=== PATIENT | female | born 1950 | race Caucasian/White ===

== ENCOUNTER 2017-12-02 12:06 | Outpatient (CLI) | payer MEDICARE, OTHER ==
[2017-12-02 13:41] LABS: Anion Gap 14 mmol/L (10-20); BUN (Urea Nitrogen) 20 mg/dL (9.8-20.1); Calc. Creatinine Clearance 0 mL/min (70-130); Calcium 9.5 mg/dL (7.8-10.44); Carbon Dioxide 31 mmol/L (23-31); Chloride 98 mmol/L (98-107); Estimated GFR-MDRD 57; Glucose 157 mg/dL (80-115); Potassium 4.7 mmol/L (3.5-5.1); Sodium 138 mmol/L (136-145)
== END 2017-12-02 12:07 | disposition home or self-care (01) ==
LOC: LABBT 12:06
PROVIDERS: ATTEND Orthopaedic Surgery
DX: M18.9 Osteoarthritis of first carpometacarpal joint, unspecified (principal); E11.9 Type 2 diabetes mellitus without complications; I10 Essential (primary) hypertension; E55.9 Vitamin D deficiency, unspecified; E78.5 Hyperlipidemia, unspecified
CPT/HCPCS: 36415; 80048; 80061; 82306; 83036; 84443; 85025; 93005; 93010

== ENCOUNTER 2017-12-06 13:13 | Observation (INO) | payer MEDICARE, MEDICAID ==
[2017-12-06] MEDS ORDERED: Ondansetron HCl/PF 4 MG/2 ML Vial ONE ×2 (14:50→15:43)
[2017-12-06] MEDS ORDERED: Bupivacaine HCl 0.5%/Epinephrine 1:200,000/PF 30 ml Vial ONE (14:51)
[2017-12-06] MEDS ORDERED: Lidocaine 1% (PF) 30 ML VIAL ONE (14:51)
[2017-12-06] MEDS ORDERED: Ketorolac Tromethamine 30 MG/ML VIAL ONE (15:43)
[2017-12-06] MEDS ORDERED: Succinylcholine Chloride 20 MG/ML 10 ml SYRINGE FS ONE (15:43)
[2017-12-06] MEDS ORDERED: Dexamethasone 20 MG/5 ML VIAL ONE (15:43)
[2017-12-06] MEDS ORDERED: Labetalol 100 MG/20 ML MDV ONE (15:43)
[2017-12-06] MEDS ORDERED: Propofol 200 MG/20 ML VIAL ONE (15:43)
[2017-12-06] MEDS ORDERED: Lidocaine 1% PF 5 ML VIAL ONE (15:43)
[2017-12-06] MEDS ORDERED: CEFAZOLIN/Water 2 GM/20 ML SYRINGE ONE (17:37)
[2017-12-06] MEDS ORDERED: Albuterol Sulfate HFA (OR ONLY) ONE (17:39)
[2017-12-06] MEDS ORDERED: Fentanyl 100 MCG/2 ML VIAL ONE ×5 (17:40→20:27)
[2017-12-06] MEDS ORDERED: methylPREDNISolone Acetate 40 mg/ml Vial ONE (17:49)
[2017-12-06] MEDS ORDERED: Ondansetron HCl/PF 4 MG/2 ML Vial SLOW IVP PRN (20:56)
[2017-12-06] MEDS ORDERED: traMADol HCl 50 MG TAB PO PRN (20:57)
[2017-12-06] MEDS ORDERED: HYDROcodone/Acetaminophen 10/325 mg Tablet PO PRN ×2 (20:57)
[2017-12-06] MEDS ORDERED: Sodium Chloride 0.9% 1,000 ML IV SCH (21:00)
[2017-12-06] MEDS ORDERED: Ondansetron HCl/PF 4 MG/2 ML Vial IVP PRN (21:01)
[2017-12-06] MEDS ORDERED: Promethazine HCl 25 MG/ML VIAL IM/IV PRN (21:01)
[2017-12-06] MEDS ORDERED: Non-Formulary Medication 1 EACH PO PRN (21:01)
[2017-12-06] MEDS ORDERED: PROVENTIL INHALER 6.7 G (200 INHALATIONS) INH PRN (21:03)
[2017-12-06] MEDS ORDERED: Fluticasone Propionate Nasal Spray 16 gm Bottle NASAL PRN (21:08)
[2017-12-06] MEDS ORDERED: Ondansetron ODT 4 MG TAB PO PRN (21:13)
[2017-12-06] MEDS ORDERED: tiZANidine HCl 4 MG TAB PO PRN (21:15)
[2017-12-06] MEDS ORDERED: Amitriptyline HCl 25 MG TAB PO SCH (21:30)
[2017-12-06] MEDS ORDERED: Diazepam 5 MG TAB PO SCH (21:30)
[2017-12-06] MEDS ORDERED: Pravastatin Sodium 20 MG TAB PO SCH (21:30)
[2017-12-06] MEDS ORDERED: Gabapentin 300 MG CAP PO SCH (21:30)
[2017-12-06 22:57] VITALS: BMI 39.9
[2017-12-06] MEDS: Ipratropium Bromide 2.5 ml Neb NEB SCH (23:57)
--- NOTE | 2017-12-07 01:43 | OP ---
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 PROCEDURES: 1. Injection of the right shoulder joint. 2. Arthroplasty of the left thumb CMC joint. SURGEON: Nicanor Partida M.D. SURGEON IN DETAIL: The patient was brought to the operating room and after administration of general anesthetic intubation, the patient's right shoulder was prepped sterilely and under sterile conditio ns, the glenohumeral joint was injected with 2 mL of Depo-Medrol and 2 mL of 0.5% Marcaine with epine phrine. The left upper extremity was then prepped and draped in the usual fashion and the tourniquet was infl ated. A bayonet shaped incision was made centered over the thumb CMC joint and the soft tissues were retrac ori out of the way, exposing the thumb CMC joint. The dorsal branch of the radial artery was identif ied and retracted out of harm's way. The interval between the extensor pollicis brevis and the abduc tor pollicis longus was developed sharply and the trapezium was identified and removed with an osteot ome and rongeur, piecemeal. All of the trapezium was taken out and the flexor carpi radialis was merrick ntified in the floor of the wound. A second incision was made in the mid volar forearm and the flexo r carpi radialis was identified and sectioned at its musculotendinous junction. The flexor carpi rad ialis was then pulled distally into the wound where the trapezium had been. A drill hole was then ma de from dorsal to volar using a 4.5-mm bur. A Hewson suture passer was then used to pull the flexor carpi radialis through the hole in the base of the metacarpal. The tendon was then anchored to the d orsum of the metacarpal through 2 drill holes in the dorsum of the metacarpal and sutured with 3-0 PD S. The tendon was then brought across the base of the first metacarpal and sutured in the floor of t he wound with 3-0 PDS thus suspending the metacarpal at the level of the base of the second metacarpa l. The remainder of the tendon was rolled into an anchovy sutured together and then secured in the f lila of the wound with 2 pursestring sutures. The capsule was then snugly closed over the joint with 3-0 Vicryl. The tourniquet was released. There was minimal bleeding and the skin was closed with n ylon after infiltrating with Marcaine. The forearm wound was also closed with nylon after infiltrate d with Marcaine. A well-padded dressing was applied with a plaster thumb spica splint and the patien t was taken recovery room in satisfactory condition. She was monitored. When she was awake and stable, she was discharged home. She was given prescripti on for pain medication, wound care instructions, followup appointment.
[2017-12-07] MEDS ORDERED: Mometasone/Formoterol 120 PUFF INHALER INH SCH (06:30)
[2017-12-07] MEDS: Ipratropium Bromide 2.5 ml Neb NEB SCH ×2 (07:16→12:09)
[2017-12-07] MEDS ORDERED: metFORMIN XR 500 MG TAB PO SCH (08:00)
[2017-12-07] MEDS ORDERED: Ferrous Sulfate 325 MG TAB PO SCH (08:00)
[2017-12-07] MEDS ORDERED: predniSONE 20 MG TAB PO SCH (08:00)
[2017-12-07] MEDS ORDERED: Potassium Chloride 8 MEQ TAB PO SCH (08:00)
[2017-12-07 08:40] VITALS: BP 127/67; TEMP 98.1
[2017-12-07] MEDS ORDERED: Valsartan 80 MG TAB PO SCH (09:00)
[2017-12-07] MEDS ORDERED: Allopurinol 100 MG TAB PO SCH (09:00)
[2017-12-07] MEDS ORDERED: Calcium Carbonate + Vit D 1 TAB PO SCH (09:00)
[2017-12-07] MEDS ORDERED: Magnesium Oxide 400 MG TAB PO SCH (09:00)
[2017-12-07] MEDS ORDERED: Furosemide 80 MG TAB PO SCH (09:00)
[2017-12-07] MEDS ORDERED: Vit A,C & E/Lutein/Minerals Tablet PO SCH (09:00)
[2017-12-07] MEDS ORDERED: Venlafaxine HCl XR 75 MG CAP PO SCH (09:00)
[2017-12-07] MEDS ORDERED: HYDROcodone/Acetaminophen 10/325 mg Tablet PO SCH (09:00)
--- NOTE | 2017-12-07 13:40 | PDOC.PN ---
- Subjective Encounter Start Date: 12/07/17 Encounter Start Time: 10:00 Subjective: no sob, is getting ready for discharge -: feels better - Objective MAR Reviewed: Yes Vital Signs & Weight: Vital Signs (12 hours) Temp Pulse Resp BP Pulse Ox 12/07/17 08:00 98.1 F 69 14 127/67 98 12/07/17 07:16 79 16 98 12/07/17 04:00 97.6 F 80 16 128/73 97 Weight Weight 239 lb 15.994 oz Additional Labs: Accuchecks 12/06/17 13:36 POC Glucose 178 H Phys Exam - Physical Examination HEENT: PERRLA, moist MMs Neck: no JVD, supple Respiratory: no wheezing, no rales Cardiovascular: RRR, no significant murmur Gastrointestinal: soft, non-tender, positive bowel sounds Musculoskeletal: no edema, pulses present Neurological: non-focal, moves all 4 limbs Psychiatric: A&O x 3 Dx/Plan (1) s/p arthroplasty of thumb Status: Acute Comment: s/p carpometacarpal joint arthroplasty for gouty arthritis (2) MANJEET (obstructive sleep apnea) Code(s): G47.33 - OBSTRUCTIVE SLEEP APNEA (ADULT) (PEDIATRIC) Status: Chronic (3) Asthma Code(s): J45.909 - UNSPECIFIED ASTHMA, UNCOMPLICATED Status: Chronic Qualifiers: Asthma severity: mild Asthma persistence: intermittent Asthma complication type: uncomplicated Qualified Code(s): J45.20 - Mild intermittent asthma, uncomplicated (4) Chronic pain syndrome Code(s): G89.4 - CHRONIC PAIN SYNDROME Status: Chronic (5) DM type 2 (diabetes mellitus, type 2) Status: Chronic Qualifiers: Diabetes mellitus complication status: with unspecified complications Diabetes mellitus usp insulin use: without usp use Qualified Code( s): E11.8 - Type 2 diabetes mellitus with unspecified complications (6) Depression Code(s): F32.9 - MAJOR DEPRESSIVE DISORDER, SINGLE EPISODE, UNSPECIFIED Status : Chronic Qualifiers: Depression Type: unspecified Qualified Code(s): F32.9 - Major depressive disorder, single episode, unspecified (7) Morbid obesity Code(s): E66.01 - MORBID (SEVERE) OBESITY DUE TO EXCESS CALORIES Status: Chronic - Plan hemostable -: to f/u with as adv, on -: to check fingerstick glucose daily and record for 10 days to f/u with pcp -: to continue allopurinol and current meds for htn, dm#2 * .
[2017-12-07] MEDS ORDERED: Diazepam 5 MG TAB PO SCH (21:00)
[2017-12-07] MEDS ORDERED: Amitriptyline HCl 25 MG TAB PO SCH (21:00)
[2017-12-07] MEDS ORDERED: Pravastatin Sodium 20 MG TAB PO SCH (21:00)
[2017-12-07] MEDS ORDERED: Gabapentin 300 MG CAP PO SCH (21:00)
[2017-12-07] MEDS ORDERED: Montelukast Sodium 10 mg Tablet PO SCH (21:00)
== END 2017-12-07 12:10 | disposition home or self-care (01) ==
LOC: SDC 13:13 → SURG B 20:37
PROVIDERS: ADMIT Orthopaedic Surgery; ATTEND Orthopaedic Surgery
PROC: 0RRT07Z Replacement of Left Carpometacarpal Joint with Autologous Tissue Substitute, Open Approach (ICD-10-PCS; principal; 2017-12-06)
PROC: 3E0U33Z Introduction of Anti-inflammatory into Joints, Percutaneous Approach (ICD-10-PCS; 2017-12-06)
DX: M18.12 Unilateral primary osteoarthritis of first carpometacarpal joint, left hand (principal); M19.011 Primary osteoarthritis, right shoulder; G47.33 Obstructive sleep apnea (adult) (pediatric); J45.909 Unspecified asthma, uncomplicated; G89.4 Chronic pain syndrome; E11.9 Type 2 diabetes mellitus without complications; F32.9 Major depressive disorder, single episode, unspecified; K58.9 Irritable bowel syndrome, unspecified; M19.90 Unspecified osteoarthritis, unspecified site; M10.9 Gout, unspecified; E66.01 Morbid (severe) obesity due to excess calories; F40.240 Claustrophobia; J42 Unspecified chronic bronchitis; Z68.41 Body mass index [BMI] 40.0-44.9, adult; Z79.84 Long term (current) use of oral hypoglycemic drugs; Z79.52 Long term (current) use of systemic steroids; Z79.899 Other long term (current) drug therapy; Z88.5 Allergy status to narcotic agent; Z91.048 Other nonmedicinal substance allergy status; Z99.89 Dependence on other enabling machines and devices; Z90.710 Acquired absence of both cervix and uterus; Z96.1 Presence of intraocular lens; Z98.41 Cataract extraction status, right eye; Z98.42 Cataract extraction status, left eye; Z96.653 Presence of artificial knee joint, bilateral; Z90.49 Acquired absence of other specified parts of digestive tract; Z98.84 Bariatric surgery status; Z98.890 Other specified postprocedural states; Z87.01 Personal history of pneumonia (recurrent)
CPT/HCPCS: 20610; 25447; 26483; 82962; 94640 ×3; 96374; G0378; 36416; J0670; J1030; J1100; J1885; J2001; J2405; J2704; J3010; J7506; J7644

== ENCOUNTER 2018-07-13 02:43 | Emergency (ER) | payer MEDICARE, MEDICAID ==
[2018-07-13] MEDS ORDERED: Lorazepam 2 MG/ML VIAL ONE (02:52)
[2018-07-13 03:21] LABS: #Basophils 0.1 thou/uL (0.0-0.2); #Lymphocytes 1.6 thou/uL (1.20-3.40); #Monocytes 0.4 thou/uL (0.11-0.59); #Neutrophils 3.5 thou/uL (1.40-6.50); %Basophils 0.9 % (0.0-1.0); %Eosinophils 0.7 % (0.0-10.0); %Lymphocytes 28.7 % (21.0-51.0); %Monocytes 7.9 % (0.0-10.0); %Neutrophils 61.8 % (42.0-75.0); Hemoglobin 14.3 g/dL (12.0-16.0); Mean Corpuscular HGB CONC 33.7 g/dL (32.0-36.0); Mean Corpuscular Hemoglobin 30.5 pg (27.0-31.0); Mean Corpuscular Volume 90.5 fL (78.0-98.0); Mean Platelet Volume 6.9 fL (7.4-10.4); Platelet Count 191 thou/uL (130-400); RBC Distribution Width 13.9 % (11.5-14.5); Red Blood Cell (RBC) Count 4.68 mill/uL (4.20-5.40); White Blood Cell (WBC) Count 5.6 thou/uL (4.8-10.8)
[2018-07-13 03:42] LABS: ALT (SGPT) 32 U/L (8-55); AST (SGOT) 36 U/L (5-34); Alkaline Phosphatase 79 U/L (40-150); Anion Gap 19 mmol/L (10-20); BUN (Urea Nitrogen) 18 mg/dL (9.8-20.1); Bilirubin, Total 0.5 mg/dL (0.2-1.2); CK (CPK) 74 U/L (29-168); Calc. Creatinine Clearance 0 mL/min (70-130); Carbon Dioxide 26 mmol/L (23-31); Chloride 99 mmol/L (98-107); Estimated GFR-MDRD 65; Globulin 3.4 g/dL (2.4-3.5); Glucose 175 mg/dL (80-115); Lipase 24 U/L (8-78); Protein, Total 7.4 g/dL (6.0-8.3); Sodium 140 mmol/L (136-145)
[2018-07-13 03:45] LABS: CKMB 1.7 ng/mL (0-6.6); Troponin I Less than 0.010 ng/mL (< 0.028)
[2018-07-13] MEDS ORDERED: Metoclopramide HCl 10 MG/2 ML VIAL ONE (04:30)
[2018-07-13 05:04] LABS: Bilirubin Negative (Negative); Blood, Urine Negative (Negative); Clarity CLEAR (Clear); Glucose, Urine (Dipstick) Negative (Negative); Leukocyte Moderate (Negative); Nitrite Negative (Negative); Protein, Urine (Dipstick) Trace mg/dL (Neg-Trace); Specific Gravity, Urine 1.011 (1.002-1.036); Urobilinogen 0.2 mg/dL (0.2-1.0)
[2018-07-13 05:07] LABS: Bacteria/HPF None Seen HPF (None Seen); Hyaline Casts/LPF 0-3 HYALINE CAST LPF (0-3 Hyaline); Pathc Cast-AUWi Flag 0.43 (0-2.49); RBC/HPF 0-3 HPF (0-3); Squamous Epithelial 0-3 HPF (0-3)
--- NOTE | 2018-07-13 08:31 | RAD ---
ABDOMEN 1 VIEW: HISTORY: Altered mental status. Dyspnea. COMPARISON: 07/17/18. FINDINGS: Cardiac silhouette is magnified by projection. Pulmonary vasculature upper limits of normal and acce ntuated by shallow inspiration. Mediastinum is midline. No lobar consolidation or evidence of pneum othorax. telemetry monitor leads overlie the chest. IMPRESSION: No active cardiopulmonary abnormalities are reliably demonstrated. POS: [facility]
--- NOTE | 2018-07-13 09:18 | CT ---
PRELIMINARY REPORT/[facility]/EMERGENTY AFTER-HOURS PROCEDURE CT Head Without Intravenous Contrast CLINICAL HISTORY: 67 years old, female; Signs and symptoms; Altered mental status/memory loss; Patient HX: This is a 67 yo f who comes in for chest pain evaluation. Pain started about 5pm tonight. She has pain substernal , sharp, and pain in the neck. The pain is not worse with exertion. She states she has taken 3 baths tonight because she feels hot. Vomiting x1. Diarrhea x1. History of ibs. TECHNIQUE: Axial computed tomography images of the head/brain without intravenous contrast. COMPARISON: No relevant prior studies available. FINDINGS: No definite acute skull fracture. Included paranasal sinuses are essentially clear. No acute intracranial hemorrhage or mass effect. Ventricle size is normal for age. There is mild, relatively symmetrical decreased attenuation in the periventricular white matter, like ly from microvascular disease. No definite acute infarct by CT. MRI could be more sensitive/specific for detection, as clinically di rected. IMPRESSION: No acute intracranial bleed or mass effect. Changes of microvascular disease. No definite acute infarct by CT, see above. Thank you for allowing us to participate in the care of your patient. Dictated and Authenticated by: Bean Maciel MD 07/13/2018 4:15 AM Central Time ([place] & [place]) FINAL REPORT CT HEAD NONCONTRAST PERFORMED ON AN EMERGENCY BASIS: Date: 07/13/18 Time: 0320 hours HISTORY: Altered mental status. FINDINGS/IMPRESSION: Findings agree with the preliminary report by [facility]. No acute intracranial abnormalities are demonstra ori. POS: [facility]
--- NOTE | 2018-07-15 17:37 | EKG ---
Test Reason : CHEST PAIN Blood Pressure : / mmHG Vent. Rate : 096 BPM Atrial Rate : 096 BPM P-R Int : 166 ms QRS Dur : 090 ms QT Int : 386 ms P-R-T Axes : 018 000 -03 degrees QTc Int : 487 ms Normal sinus rhythm Cannot rule out Anterior infarct , age undetermined Abnormal ECG Confirmed by ANH STUART, CONNIE ([id number]), proposal editor OLIVER GARCIA ([id number]) on 07/15/2018 5:36:56 PM Referred By: Confirmed By:CONNIE KAMARA MD
== END 2018-07-13 05:42 | disposition home or self-care (01) ==
LOC: ERS 02:43
DX: F41.9 Anxiety disorder, unspecified (principal); R51 Headache; I10 Essential (primary) hypertension; Z79.899 Other long term (current) drug therapy
CPT/HCPCS: 36415; 70450; 71045; 80053; 81003; 81015; 82553; 83690; 83880; 84484; 85025; 87086; 93005; 96365; 96375; J2060; J2765

== ENCOUNTER 2018-08-01 04:18 | Emergency (ER) | payer MEDICARE, OTHER ==
[2018-08-01 05:23] LABS: #Basophils 0.1 thou/uL (0.0-0.2); #Eosinphils 0.1 thou/uL (0.0-0.7); #Lymphocytes 1.5 thou/uL (1.20-3.40); #Monocytes 0.7 thou/uL (0.11-0.59); #Neutrophils 5.3 thou/uL (1.40-6.50); %Basophils 0.9 % (0.0-1.0); %Eosinophils 1.6 % (0.0-10.0); %Lymphocytes 19.6 % (21.0-51.0); %Monocytes 9.4 % (0.0-10.0); %Neutrophils 68.4 % (42.0-75.0); Hemoglobin 14.4 g/dL (12.0-16.0); Mean Corpuscular HGB CONC 32.1 g/dL (32.0-36.0); Mean Corpuscular Hemoglobin 29.9 pg (27.0-31.0); Mean Corpuscular Volume 92.9 fL (78.0-98.0); Mean Platelet Volume 6.7 fL (7.4-10.4); Platelet Count 232 thou/uL (130-400); RBC Distribution Width 13.8 % (11.5-14.5); Red Blood Cell (RBC) Count 4.84 mill/uL (4.20-5.40); White Blood Cell (WBC) Count 7.7 thou/uL (4.8-10.8)
[2018-08-01 05:50] LABS: ALT (SGPT) 41 U/L (8-55); AST (SGOT) 48 U/L (5-34); Albumin 4.2 g/dL (3.4-4.8); Alkaline Phosphatase 90 U/L (40-150); Anion Gap 16 mmol/L (10-20); BUN (Urea Nitrogen) 16 mg/dL (9.8-20.1); Bilirubin, Total 0.5 mg/dL (0.2-1.2); Calc. Creatinine Clearance 0 mL/min (70-130); Calcium 9.7 mg/dL (7.8-10.44); Carbon Dioxide 28 mmol/L (23-31); Chloride 97 mmol/L (98-107); Estimated GFR-MDRD 57; Globulin 3.7 g/dL (2.4-3.5); Glucose 170 mg/dL (80-115); Magnesium 1.6 mg/dL (1.6-2.6); Potassium 4.4 mmol/L (3.5-5.1); Protein, Total 7.9 g/dL (6.0-8.3); Sodium 137 mmol/L (136-145)
[2018-08-01 05:53] LABS: CKMB 1.6 ng/mL (0-6.6); Troponin I Less than 0.010 ng/mL (< 0.028)
[2018-08-01 06:03] LABS: Bilirubin Negative (Negative); Blood, Urine Trace (Negative); Clarity CLEAR (Clear); Glucose, Urine (Dipstick) Negative (Negative); Leukocyte Moderate (Negative); Nitrite Negative (Negative); Protein, Urine (Dipstick) Negative (Neg-Trace); Specific Gravity, Urine 1.006 (1.002-1.036); Urobilinogen 0.2 mg/dL (0.2-1.0); pH, Urine 5.5 (5.0-9.0)
[2018-08-01] MEDS ORDERED: Fentanyl 100 MCG/2 ML VIAL ONE (06:05)
[2018-08-01] MEDS ORDERED: Ketorolac Tromethamine 30 MG/ML VIAL ONE ×2 (06:05→06:15)
[2018-08-01 06:06] LABS: Bacteria/HPF None Seen HPF (None Seen); Hyaline Casts/LPF 4-6 HYALINE CAST LPF (0-3 Hyaline); Pathc Cast-AUWi Flag 0.72 (0-2.49); RBC/HPF 0-3 HPF (0-3); Squamous Epithelial 0-3 HPF (0-3)
--- NOTE | 2018-08-01 09:00 | RAD ---
PORTABLE CHEST: History: Fall. Chest pain. Comparison: 07-13-18 FINDINGS: The lungs appear well aerated and clear. No pneumothorax or infiltrate. No evidence of significant ef fusion. Bony thorax appears intact as visualized on this exam. IMPRESSION: No acute finding. POS: [facility]
--- NOTE | 2018-08-01 09:02 | RAD ---
AP PELVIS 1 VIEW: Date: 08/01/18 HISTORY: 68-year-old female with history of pelvic pain following a fall. FINDINGS: Degenerative changes of both hip joints, SI joints, spondylosis, and postoperative changes of the low er lumbar spine. No acute fracture or dislocation. IMPRESSION: No acute fracture or dislocation. Degenerative and osteoarthrosis changes. POS: [facility]
--- NOTE | 2018-08-01 09:04 | RAD ---
LUMBAR SPINE 3 VIEWS: Date: 08/01/18 HISTORY: Fall with injury to back. COMPARISON: 07/20/16. FINDINGS: Lumbar vertebra maintain height and alignment. There are moderate degenerative changes present. Promi nent osteophytes are seen within the lumbar vertebra. Degenerative disc changes are seen at multiple levels. Prominent facet hypertrophy. No compression deformity or evidence of acute fracture. No evidence of spondylolisthesis. IMPRESSION: Moderate degenerative changes of the lumbar spine without evidence of acute compression or fracture. POS: [facility]
== END 2018-08-01 10:58 | disposition home or self-care (01) ==
LOC: ERS 04:18
DX: S30.0XXA Contusion of lower back and pelvis, initial encounter (principal); N39.0 Urinary tract infection, site not specified; I10 Essential (primary) hypertension; J45.909 Unspecified asthma, uncomplicated; K58.9 Irritable bowel syndrome, unspecified; F41.9 Anxiety disorder, unspecified; F32.9 Major depressive disorder, single episode, unspecified; Z79.1 Long term (current) use of non-steroidal anti-inflammatories (NSAID); Z79.899 Other long term (current) drug therapy; W01.198A Fall on same level from slipping, tripping and stumbling with subsequent striking against other object, initial encounter
CPT/HCPCS: 36415; 71045; 72100; 72170; 80053; 81003; 81015; 82553; 83735; 84484; 85025; 87086; 93005; 96374; 96375; J1885; J3010

== ENCOUNTER 2019-05-14 13:23 | Outpatient (CLI) | payer MEDICARE, OTHER ==
--- NOTE | 2019-05-14 14:19 | MMO ---
Bilateral MAMMO Bilat Screen [facility]. CLINICAL HISTORY: Patient is 68 years old and is seen for screening. The patient has the following family history of breast cancer: sister and niece. The patient has no personal history of cancer. VIEWS: The views performed were: bilateral craniocaudal with tomosynthesis and bilateral mediolateral oblique with tomosynthesis. FILMS COMPARED: The present examination has been compared to prior imaging studies performed at [facility] on 10/20/2006, 12/05/2007, 09/18/2015 and 11/11/2016. MAMMOGRAM FINDINGS: There are scattered fibroglandular densities. There are stable benign appearing calcifications seen in both breasts. There are also vascular calcifications. There are no suspicious masses, suspicious calcifications, or new areas of architectural distortion. IMPRESSION: THERE IS NO MAMMOGRAPHIC EVIDENCE OF MALIGNANCY. A ROUTINE FOLLOW-UP MAMMOGRAM IN 1 YEAR IS RECOMMENDED. THE RESULTS OF THIS EXAM WERE SENT TO THE PATIENT. ACR BI-RADS Category 2 - Benign finding MAMMOGRAPHY NOTE: 1. A negative mammogram report should not delay a biopsy if a dominant of clinically suspicious mass is present. 2. Approximately 10% to 15% of breast cancers are not detected by mammography. 3. Adenosis and dense breasts may obscure an underlying neoplasm. Reported by: JERAMY GUAMAN MD Electonically Signed: [id number]
== END 2019-05-14 13:24 | disposition home or self-care (01) ==
LOC: BICMAMMO 13:23
PROVIDERS: ATTEND Family Medicine
DX: Z12.31 Encounter for screening mammogram for malignant neoplasm of breast (principal); Z80.3 Family history of malignant neoplasm of breast
CPT/HCPCS: 77063; 77067

== ENCOUNTER 2020-04-30 12:24 | Emergency (ER) | payer MEDICARE, MEDICAID ==
[2020-04-30] MEDS ORDERED: Cyclobenzaprine 10 MG TAB ONE (13:14)
[2020-04-30 13:23] LABS: Hemoglobin 13.2 g/dL (12.0-16.0); Mean Corpuscular HGB CONC 31.1 g/dL (32.0-36.0); Mean Corpuscular Hemoglobin 25.1 pg (27.0-31.0); Mean Corpuscular Volume 80.7 fL (78.0-98.0); Mean Platelet Volume 7.8 fL (7.4-10.4); Platelet Count 276 thou/uL (130-400); RBC Distribution Width 18.1 % (11.5-14.5); Red Blood Cell (RBC) Count 5.25 mill/uL (4.20-5.40); White Blood Cell (WBC) Count 11.2 thou/uL (4.8-10.8)
[2020-04-30 13:46] LABS: Anisocytosis SLIGHT = 6-15 cells (100X) (0-5/hpf); Band 9 % (5-11); Eosinophils 6 % (0-10); Hypochromia SLIGHT = 6-15 cells (100X) (0-5/hpf); Lymphocytes 10 % (21-51); MDiff Complete? YES; Monocytes 9 % (0-10); Neutrophil 44 % (42-75); Ovalocytes SLIGHT = 2-5 cells (100X) (0-1/hpf); Platelet Morphology Comment Appears Adequate; Polychromasia SLIGHT = 2-3 cells (100X) (0-2/hpf); Reactive Lymphocytes 22 % (0-10)
[2020-04-30 13:51] LABS: ALT (SGPT) 15 U/L (8-55); AST (SGOT) 18 U/L (5-34); Alkaline Phosphatase 99 U/L (40-110); Anion Gap 18 mmol/L (10-20); BUN (Urea Nitrogen) 17 mg/dL (9.8-20.1); Bilirubin, Total 0.5 mg/dL (0.2-1.2); CK (CPK) 82 U/L (29-168); Calc. Creatinine Clearance 0 mL/min (70-130); Calcium 9.3 mg/dL (7.8-10.44); Carbon Dioxide 30 mmol/L (23-31); Chloride 95 mmol/L (98-107); Estimated GFR-MDRD 41; Globulin 3.7 g/dL (2.4-3.5); Glucose 148 mg/dL (83-110); Potassium 3.9 mmol/L (3.5-5.1); Protein, Total 7.7 g/dL (6.0-8.3); Sodium 139 mmol/L (136-145)
--- NOTE | 2020-04-30 14:06 | RAD ---
EXAM: Single view of the chest HISTORY: Chest pain COMPARISON: 08/01/2018 FINDINGS: Single view of the chest shows a normal sized cardiomediastinal silhouette. There is no anne dence of consolidation, mass, or pleural effusion. Degenerative changes are seen in the spine. IMPRESSION: No evidence of acute cardiopulmonary disease
== END 2020-04-30 15:30 | disposition home or self-care (01) ==
LOC: ERS 12:24
DX: M62.830 Muscle spasm of back (principal); E78.5 Hyperlipidemia, unspecified; I10 Essential (primary) hypertension; M10.9 Gout, unspecified; K58.9 Irritable bowel syndrome, unspecified; J45.909 Unspecified asthma, uncomplicated; F41.9 Anxiety disorder, unspecified; F32.9 Major depressive disorder, single episode, unspecified; Z79.899 Other long term (current) drug therapy; Z79.891 Long term (current) use of opiate analgesic
CPT/HCPCS: 36415; 71045; 80053; 82550; 84484; 85025; 93005

== ENCOUNTER 2021-07-28 14:08 | Inpatient (IN) | payer OTHER, MEDICARE ==
[2021-07-28 14:52] VITALS: BMI 39.1
[2021-07-28] MEDS ORDERED: ceFAZolin Sodium/D5W 2 GM in Premix Bag 1 BAG IVPB SCH (16:00)
[2021-07-28] MEDS ORDERED: Ondansetron PF 4 MG/2 ML Vial IVP PRN (16:41)
[2021-07-28] MEDS ORDERED: hydrALAZINE 20 MG/ML VIAL SLOW IVP PRN (16:41)
[2021-07-28] MEDS ORDERED: Dextrose 50% Abboject 50 ML SYRINGE SLOW IVP PRN (16:41)
[2021-07-28] MEDS ORDERED: Dextrose 5% in Water 1,000 ML IV PRN (16:41)
[2021-07-28] MEDS ORDERED: Morphine 4 MG/ML VIAL SLOW IVP PRN (16:41)
[2021-07-28] MEDS ORDERED: Cyclobenzaprine 10 MG TAB PO PRN (16:44)
[2021-07-28] MEDS ORDERED: traMADol HCl 50 MG TAB PO PRN (16:44)
[2021-07-28] MEDS ORDERED: Fluticasone Propionate Nasal Spray 16 gm Bottle NASAL PRN (16:46)
[2021-07-28] MEDS ORDERED: Ipratropium Bromide 2.5 ml Neb NEB PRN (16:59)
[2021-07-28] MEDS: traMADol HCl 50 MG TAB PO PRN ×2 (17:18→23:55)
[2021-07-28] MEDS: Acetaminophen 500 MG TAB PO SCH ×2 (18:01→23:55)
[2021-07-28] MEDS: Mometasone 200 MCG/Formoterol 5 MCG 120 PUFF INHALER INH SCH (18:40)
[2021-07-28] MEDS ORDERED: Famotidine/PF 20 mg/2ml Vial SLOW IVP SCH (21:00)
[2021-07-28] MEDS: Magnesium Oxide 400 MG TAB PO SCH (21:58)
[2021-07-28] MEDS: Simvastatin 10 MG TAB PO SCH (21:58)
[2021-07-28] MEDS: Montelukast Sodium 10 mg Tablet PO SCH (21:58)
[2021-07-28] MEDS: Senokot S 8.6-50 MG TAB PO SCH (22:01)
[2021-07-29] MEDS ORDERED: Sodium Chloride 0.9% 1,000 ML IV SCH (00:01)
[2021-07-29] MEDS: Mometasone 200 MCG/Formoterol 5 MCG 120 PUFF INHALER INH SCH ×2 (06:55→19:21)
[2021-07-29 07:01] LABS: #Eosinphils 0.2 thou/uL (0.0-0.7); #Monocytes 0.5 thou/uL (0.11-0.59); %Basophils 0.3 % (0.0-1.0); %Eosinophils 2.5 % (0.0-10.0); %Lymphocytes 29.5 % (21.0-51.0); %Monocytes 7.4 % (0.0-10.0); %Neutrophils 60.2 % (42.0-75.0); Hemoglobin 13.3 g/dL (12.0-16.0); Mean Corpuscular HGB CONC 32.2 g/dL (32.0-36.0); Mean Corpuscular Hemoglobin 28.2 pg (27.0-31.0); Mean Corpuscular Volume 87.7 fL (78.0-98.0); Mean Platelet Volume 7.6 fL (7.4-10.4); Platelet Count 159 thou/uL (130-400); Red Blood Cell (RBC) Count 4.72 mill/uL (4.20-5.40); White Blood Cell (WBC) Count 6.7 thou/uL (4.8-10.8)
[2021-07-29] MEDS: Acetaminophen 500 MG TAB PO SCH ×3 (07:13→19:53)
[2021-07-29 07:19] LABS: Anion Gap 14 mmol/L (10-20); BUN (Urea Nitrogen) 18 mg/dL (9.8-20.1); Calc. Creatinine Clearance 90 mL/min (70-130); Calcium 8.9 mg/dL (7.8-10.44); Carbon Dioxide 28 mmol/L (23-31); Chloride 101 mmol/L (98-107); Glucose 142 mg/dL (83-110); Magnesium 1.8 mg/dL (1.6-2.6); Phosphorus 3.6 mg/dL (2.3-4.7); Potassium 3.8 mmol/L (3.5-5.1); Sodium 139 mmol/L (136-145)
[2021-07-29] MEDS: Polyethylene Glycol 3350 17 GM Packet PO SCH (07:56)
[2021-07-29] MEDS ORDERED: Magnesium 2 GM/50 ML 2 GM in Premix Bag 1 BAG IVPB SCH (08:30)
[2021-07-29] MEDS ORDERED: Potassium Phosphate 30 MMOL in Sodium Chloride 0.9% 250 ML 250 ML IVPB SCH (08:30)
[2021-07-29] MEDS: Venlafaxine HCl XR 150 MG CAP PO SCH (09:05)
[2021-07-29] MEDS: Allopurinol 100 MG TAB PO SCH (09:05)
[2021-07-29] MEDS: Ferrous Sulfate 325 MG TAB PO SCH (09:05)
[2021-07-29] MEDS: Valsartan 80 MG TAB PO SCH (09:06)
[2021-07-29] MEDS: predniSONE 20 MG TAB PO SCH (09:06)
[2021-07-29] MEDS: Senokot S 8.6-50 MG TAB PO SCH ×2 (09:06→21:58)
[2021-07-29] MEDS: Magnesium Oxide 400 MG TAB PO SCH ×2 (09:06→21:59)
[2021-07-29] MEDS: traMADol HCl 50 MG TAB PO PRN ×2 (10:07→21:59)
[2021-07-29] MEDS ORDERED: Fentanyl 100 MCG/2 ML VIAL ONE ×3 (13:21→17:27)
[2021-07-29] MEDS ORDERED: Dexamethasone 4 mg/ml Vial ONE (13:22)
[2021-07-29] MEDS ORDERED: ceFAZolin 2 GM/DEX 5% 100 ML BAG ONE (13:44)
[2021-07-29] MEDS ORDERED: Phenylephrine 10 MG/ML VIAL ONE (15:00)
[2021-07-29] MEDS ORDERED: Bupivacaine HCl 0.5%/Epinephrine 1:200,000/PF 30 ml Vial ONE (15:21)
[2021-07-29] MEDS ORDERED: Rocuronium Bromide 10 MG/ML (10ML VIAL) ONE (15:21)
[2021-07-29] MEDS ORDERED: Glycopyrrolate 0.2 MG/ML 5 ML SYRINGE ONE (15:21)
[2021-07-29] MEDS ORDERED: Naloxone HCl 0.4 mg/ml Vial ONE (15:21)
[2021-07-29] MEDS ORDERED: Dexamethasone 20 MG/5 ML VIAL ONE ×2 (15:21)
[2021-07-29] MEDS ORDERED: Ondansetron PF 4 MG/2 ML Vial ONE (15:21)
[2021-07-29] MEDS ORDERED: PROPOFOL 200 MG/20 ML VIAL ONE (15:21)
[2021-07-29] MEDS ORDERED: Lidocaine 1% PF 5 ML VIAL ONE (15:21)
[2021-07-29] MEDS: CEFAZOLIN 2 GM, Admixture Fee 1 EACH in Sodium Chloride 0.9% 100 ML IVPB SCH (21:59)
[2021-07-29] MEDS: Simvastatin 10 MG TAB PO SCH (21:59)
[2021-07-29] MEDS: Insulin Regular 300 UNITS/3 ML VIAL SC PRN (21:59)
[2021-07-29] MEDS: Montelukast Sodium 10 mg Tablet PO SCH (21:59)
[2021-07-29] MEDS ORDERED: ceFAZolin Sodium/D5W 2 GM in Premix Bag 1 BAG IVPB SCH (22:00)
[2021-07-29] MEDS: Benzonatate 100 MG CAP PO PRN (22:17)
[2021-07-30] MEDS: Acetaminophen 500 MG TAB PO SCH ×4 (00:11→18:29)
[2021-07-30] MEDS: Insulin Regular 300 UNITS/3 ML VIAL SC PRN ×4 (06:28→20:40)
[2021-07-30] MEDS: CEFAZOLIN 2 GM, Admixture Fee 1 EACH in Sodium Chloride 0.9% 100 ML IVPB SCH ×2 (06:29→15:16)
[2021-07-30] MEDS: traMADol HCl 50 MG TAB PO PRN (06:34)
[2021-07-30 07:19] LABS: Anion Gap 12 mmol/L (10-20); BUN (Urea Nitrogen) 20 mg/dL (9.8-20.1); Calc. Creatinine Clearance 88 mL/min (70-130); Calcium 8.6 mg/dL (7.8-10.44); Carbon Dioxide 27 mmol/L (23-31); Chloride 100 mmol/L (98-107); Glucose 182 mg/dL (83-110); Magnesium 2.3 mg/dL (1.6-2.6); Phosphorus 2.9 mg/dL (2.3-4.7); Sodium 134 mmol/L (136-145)
[2021-07-30 07:23] LABS: #Lymphocytes 0.8 thou/uL (1.20-3.40); #Monocytes 0.6 thou/uL (0.11-0.59); %Basophils 0.2 % (0.0-1.0); %Eosinophils 0.1 % (0.0-10.0); %Neutrophils 85.8 % (42.0-75.0); Hemoglobin 10.7 g/dL (12.0-16.0); Mean Corpuscular HGB CONC 32.3 g/dL (32.0-36.0); Mean Corpuscular Hemoglobin 28.5 pg (27.0-31.0); Mean Corpuscular Volume 88.2 fL (78.0-98.0); Mean Platelet Volume 7.6 fL (7.4-10.4); Platelet Count 168 thou/uL (130-400); RBC Distribution Width 14.8 % (11.5-14.5); Red Blood Cell (RBC) Count 3.74 mill/uL (4.20-5.40); White Blood Cell (WBC) Count 10.5 thou/uL (4.8-10.8)
[2021-07-30] MEDS: Mometasone 200 MCG/Formoterol 5 MCG 120 PUFF INHALER INH SCH ×2 (07:38→18:24)
[2021-07-30] MEDS ORDERED: PHOS-NAK 1 PKT PACK PO SCH (08:00)
[2021-07-30] MEDS: Valsartan 80 MG TAB PO SCH (10:11)
[2021-07-30] MEDS: Venlafaxine HCl XR 150 MG CAP PO SCH (10:12)
[2021-07-30] MEDS: predniSONE 20 MG TAB PO SCH (10:12)
[2021-07-30] MEDS: Allopurinol 100 MG TAB PO SCH (10:18)
[2021-07-30] MEDS: Ferrous Sulfate 325 MG TAB PO SCH (10:18)
[2021-07-30] MEDS: Magnesium Oxide 400 MG TAB PO SCH ×2 (10:18→20:31)
[2021-07-30] MEDS: Aspirin 81 mg Enteric Coated Tablet PO SCH ×2 (10:18→20:31)
[2021-07-30] MEDS: Polyethylene Glycol 3350 17 GM Packet PO SCH (10:19)
[2021-07-30] MEDS: Senokot S 8.6-50 MG TAB PO SCH ×2 (10:19→20:32)
[2021-07-30] MEDS ORDERED: tiZANidine HCl 4 MG TAB PO PRN (13:54)
[2021-07-30] MEDS: HYDROcodone/Acetaminophen 10/325 mg Tablet PO PRN ×2 (15:17→20:32)
[2021-07-30] MEDS: Amitriptyline HCl 25 MG TAB PO SCH (20:31)
[2021-07-30] MEDS: Simvastatin 10 MG TAB PO SCH (20:31)
[2021-07-30] MEDS: Gabapentin 300 MG CAP PO SCH (20:31)
[2021-07-30] MEDS: Montelukast Sodium 10 mg Tablet PO SCH (20:32)
[2021-07-30] MEDS: Benzonatate 100 MG CAP PO PRN (20:35)
[2021-07-30] MEDS: Diazepam 5 MG TAB PO SCH (22:46)
[2021-07-31] MEDS: Acetaminophen 500 MG TAB PO SCH ×4 (00:22→18:31)
[2021-07-31] MEDS: Benzonatate 100 MG CAP PO PRN (05:05)
[2021-07-31 05:16] LABS: Anion Gap 12 mmol/L (10-20); BUN (Urea Nitrogen) 28 mg/dL (9.8-20.1); Calc. Creatinine Clearance 76 mL/min (70-130); Calcium 8.2 mg/dL (7.8-10.44); Carbon Dioxide 24 mmol/L (23-31); Chloride 104 mmol/L (98-107); Glucose 170 mg/dL (83-110); Magnesium 2.3 mg/dL (1.6-2.6); Phosphorus 3.2 mg/dL (2.3-4.7); Potassium 4.7 mmol/L (3.5-5.1); Sodium 135 mmol/L (136-145)
[2021-07-31] MEDS: Mometasone 200 MCG/Formoterol 5 MCG 120 PUFF INHALER INH SCH ×2 (06:54→18:38)
[2021-07-31] MEDS ORDERED: PHOS-NAK 1 PKT PACK PO SCH (07:45)
[2021-07-31] MEDS: Potassium Chloride 10 MEQ TAB PO SCH (09:35)
[2021-07-31] MEDS: Venlafaxine HCl XR 150 MG CAP PO SCH (09:37)
[2021-07-31] MEDS: Furosemide 80 MG TAB PO SCH (09:37)
[2021-07-31] MEDS: Ferrous Sulfate 325 MG TAB PO SCH (09:39)
[2021-07-31] MEDS: metFORMIN XR 500 MG TAB PO SCH ×2 (09:39→18:31)
[2021-07-31] MEDS: Polyethylene Glycol 3350 17 GM Packet PO SCH (09:40)
[2021-07-31] MEDS: Magnesium Oxide 400 MG TAB PO SCH ×2 (09:40→20:16)
[2021-07-31] MEDS: Allopurinol 100 MG TAB PO SCH (09:40)
[2021-07-31] MEDS: Aspirin 81 mg Enteric Coated Tablet PO SCH ×2 (09:40→20:15)
[2021-07-31] MEDS: predniSONE 20 MG TAB PO SCH (09:40)
[2021-07-31] MEDS: Senokot S 8.6-50 MG TAB PO SCH ×2 (09:40→21:28)
[2021-07-31] MEDS: Valsartan 80 MG TAB PO SCH (10:08)
[2021-07-31] MEDS: HYDROcodone/Acetaminophen 10/325 mg Tablet PO PRN (12:01)
[2021-07-31] MEDS: Insulin Regular 300 UNITS/3 ML VIAL SC PRN ×3 (12:02→21:25)
[2021-07-31 14:24] LABS: #Monocytes 0.3 thou/uL (0.11-0.59); %Basophils 0.1 % (0.0-1.0); %Eosinophils 0.5 % (0.0-10.0); %Lymphocytes 15.7 % (21.0-51.0); %Monocytes 4.6 % (0.0-10.0); %Neutrophils 79.1 % (42.0-75.0); Hemoglobin 11.6 g/dL (12.0-16.0); Mean Corpuscular HGB CONC 32.3 g/dL (32.0-36.0); Mean Corpuscular Hemoglobin 29.2 pg (27.0-31.0); Mean Corpuscular Volume 90.4 fL (78.0-98.0); Mean Platelet Volume 8.2 fL (7.4-10.4); Platelet Count 134 thou/uL (130-400); RBC Distribution Width 15.2 % (11.5-14.5); Red Blood Cell (RBC) Count 3.96 mill/uL (4.20-5.40); White Blood Cell (WBC) Count 6.4 thou/uL (4.8-10.8)
[2021-07-31] MEDS: Amitriptyline HCl 25 MG TAB PO SCH (20:14)
[2021-07-31] MEDS: Gabapentin 300 MG CAP PO SCH (20:15)
[2021-07-31] MEDS: Diazepam 5 MG TAB PO SCH (20:15)
[2021-07-31] MEDS: Montelukast Sodium 10 mg Tablet PO SCH (20:16)
[2021-07-31] MEDS: Simvastatin 10 MG TAB PO SCH (20:20)
[2021-08-01] MEDS: Acetaminophen 500 MG TAB PO SCH ×4 (01:40→17:13)
[2021-08-01 05:14] LABS: #Eosinphils 0.1 thou/uL (0.0-0.7); #Lymphocytes 1.3 thou/uL (1.20-3.40); #Monocytes 0.7 thou/uL (0.11-0.59); #Neutrophils 4.6 thou/uL (1.40-6.50); %Basophils 0.3 % (0.0-1.0); %Eosinophils 1.9 % (0.0-10.0); %Lymphocytes 19.4 % (21.0-51.0); %Monocytes 9.8 % (0.0-10.0); %Neutrophils 68.6 % (42.0-75.0); Hemoglobin 11.3 g/dL (12.0-16.0); Mean Corpuscular HGB CONC 32.4 g/dL (32.0-36.0); Mean Corpuscular Hemoglobin 28.6 pg (27.0-31.0); Mean Corpuscular Volume 88.4 fL (78.0-98.0); Mean Platelet Volume 8.1 fL (7.4-10.4); Platelet Count 148 thou/uL (130-400); RBC Distribution Width 14.9 % (11.5-14.5); Red Blood Cell (RBC) Count 3.96 mill/uL (4.20-5.40); White Blood Cell (WBC) Count 6.7 thou/uL (4.8-10.8)
[2021-08-01] MEDS: HYDROcodone/Acetaminophen 10/325 mg Tablet PO PRN (08:56)
[2021-08-01] MEDS: Potassium Chloride 10 MEQ TAB PO SCH (08:57)
[2021-08-01] MEDS: metFORMIN XR 500 MG TAB PO SCH ×2 (08:57→17:13)
[2021-08-01] MEDS: Furosemide 80 MG TAB PO SCH (08:58)
[2021-08-01] MEDS: Allopurinol 100 MG TAB PO SCH (08:58)
[2021-08-01] MEDS: Venlafaxine HCl XR 150 MG CAP PO SCH (08:58)
[2021-08-01] MEDS: predniSONE 20 MG TAB PO SCH (08:58)
[2021-08-01] MEDS: Ferrous Sulfate 325 MG TAB PO SCH (08:58)
[2021-08-01] MEDS: Senokot S 8.6-50 MG TAB PO SCH ×2 (08:58→20:10)
[2021-08-01] MEDS: Magnesium Oxide 400 MG TAB PO SCH ×2 (08:58→20:10)
[2021-08-01] MEDS: Aspirin 81 mg Enteric Coated Tablet PO SCH ×2 (08:58→20:10)
[2021-08-01] MEDS: Polyethylene Glycol 3350 17 GM Packet PO SCH (08:59)
[2021-08-01] MEDS: Valsartan 80 MG TAB PO SCH (08:59)
[2021-08-01] MEDS: Mometasone 200 MCG/Formoterol 5 MCG 120 PUFF INHALER INH SCH ×2 (10:31→18:45)
[2021-08-01] MEDS: Insulin Regular 300 UNITS/3 ML VIAL SC PRN ×2 (11:14→15:55)
[2021-08-01] MEDS: Gabapentin 300 MG CAP PO SCH (20:09)
[2021-08-01] MEDS: Diazepam 5 MG TAB PO SCH (20:10)
[2021-08-01] MEDS: Amitriptyline HCl 25 MG TAB PO SCH (20:10)
[2021-08-01] MEDS: Montelukast Sodium 10 mg Tablet PO SCH (20:10)
[2021-08-01] MEDS: Simvastatin 10 MG TAB PO SCH (20:15)
[2021-08-02] MEDS: Acetaminophen 500 MG TAB PO SCH ×5 (00:33→17:44)
[2021-08-02] MEDS: Mometasone 200 MCG/Formoterol 5 MCG 120 PUFF INHALER INH SCH ×2 (07:02→19:08)
[2021-08-02] MEDS: Ferrous Sulfate 325 MG TAB PO SCH (08:55)
[2021-08-02] MEDS: Valsartan 80 MG TAB PO SCH (08:56)
[2021-08-02] MEDS: Venlafaxine HCl XR 150 MG CAP PO SCH (08:56)
[2021-08-02] MEDS: metFORMIN XR 500 MG TAB PO SCH ×2 (08:56→17:44)
[2021-08-02] MEDS: Aspirin 81 mg Enteric Coated Tablet PO SCH ×2 (08:56→20:15)
[2021-08-02] MEDS: Senokot S 8.6-50 MG TAB PO SCH ×2 (08:56→20:15)
[2021-08-02] MEDS: predniSONE 20 MG TAB PO SCH (08:57)
[2021-08-02] MEDS: Furosemide 80 MG TAB PO SCH (08:57)
[2021-08-02] MEDS: Polyethylene Glycol 3350 17 GM Packet PO SCH (08:57)
[2021-08-02] MEDS: Allopurinol 100 MG TAB PO SCH (08:57)
[2021-08-02] MEDS: Magnesium Oxide 400 MG TAB PO SCH ×2 (08:57→20:15)
[2021-08-02] MEDS: Benzonatate 100 MG CAP PO PRN ×2 (08:57→20:08)
[2021-08-02] MEDS: Potassium Chloride 10 MEQ TAB PO SCH (08:58)
[2021-08-02] MEDS: Insulin Regular 300 UNITS/3 ML VIAL SC PRN ×3 (12:10→20:27)
[2021-08-02] MEDS: Gabapentin 300 MG CAP PO SCH (20:13)
[2021-08-02] MEDS: Diazepam 5 MG TAB PO SCH (20:14)
[2021-08-02] MEDS: Amitriptyline HCl 25 MG TAB PO SCH (20:14)
[2021-08-02] MEDS: Montelukast Sodium 10 mg Tablet PO SCH (20:15)
[2021-08-02] MEDS: Simvastatin 10 MG TAB PO SCH (20:15)
[2021-08-03] MEDS: Acetaminophen 500 MG TAB PO SCH ×3 (00:03→11:53)
[2021-08-03] MEDS: Mometasone 200 MCG/Formoterol 5 MCG 120 PUFF INHALER INH SCH (08:00)
[2021-08-03] MEDS: Polyethylene Glycol 3350 17 GM Packet PO SCH (08:57)
[2021-08-03] MEDS: Valsartan 80 MG TAB PO SCH (08:57)
[2021-08-03] MEDS: Aspirin 81 mg Enteric Coated Tablet PO SCH (08:57)
[2021-08-03] MEDS: metFORMIN XR 500 MG TAB PO SCH (08:57)
[2021-08-03] MEDS: predniSONE 20 MG TAB PO SCH (08:57)
[2021-08-03] MEDS: Ferrous Sulfate 325 MG TAB PO SCH (08:57)
[2021-08-03] MEDS: Magnesium Oxide 400 MG TAB PO SCH (08:58)
[2021-08-03] MEDS: Furosemide 80 MG TAB PO SCH (08:58)
[2021-08-03] MEDS: Senokot S 8.6-50 MG TAB PO SCH (08:58)
[2021-08-03] MEDS: Allopurinol 100 MG TAB PO SCH (08:58)
[2021-08-03] MEDS: Venlafaxine HCl XR 150 MG CAP PO SCH (08:58)
[2021-08-03] MEDS: Potassium Chloride 10 MEQ TAB PO SCH (08:58)
[2021-08-03] MEDS: Insulin Regular 300 UNITS/3 ML VIAL SC PRN (11:52)
[2021-08-03 11:57] VITALS: BP 120/65; TEMP 97.2
== END 2021-08-03 14:57 | DRG 522 ==
LOC: T4-A 14:50 → SURG A 07-29 18:34
PROVIDERS: ADMIT Surgery; ATTEND Surgery
PROC: 0SRS0JZ Replacement of Left Hip Joint, Femoral Surface with Synthetic Substitute, Open Approach (ICD-10-PCS; principal; 2021-07-29)
DX: S72.012A Unspecified intracapsular fracture of left femur, initial encounter for closed fracture (principal); Z96.643 Presence of artificial hip joint, bilateral; W17.89XA Other fall from one level to another, initial encounter; E78.5 Hyperlipidemia, unspecified; M10.9 Gout, unspecified; G47.33 Obstructive sleep apnea (adult) (pediatric); J44.9 Chronic obstructive pulmonary disease, unspecified; E11.621 Type 2 diabetes mellitus with foot ulcer; L97.529 Non-pressure chronic ulcer of other part of left foot with unspecified severity; Z88.6 Allergy status to analgesic agent; Z91.09 Other allergy status, other than to drugs and biological substances; Z79.899 Other long term (current) drug therapy; Z90.49 Acquired absence of other specified parts of digestive tract; Z98.49 Cataract extraction status, unspecified eye; Z90.710 Acquired absence of both cervix and uterus; Z98.51 Tubal ligation status; Y92.481 Parking lot as the place of occurrence of the external cause; Z98.84 Bariatric surgery status; Z87.891 Personal history of nicotine dependence; Z79.84 Long term (current) use of oral hypoglycemic drugs; Z79.890 Hormone replacement therapy
CPT/HCPCS: 36415; 36416; 72170; 80048; 83735; 84100; 85025; 94640; C1776; J0690; J1100; J1815; J2310; J2370; J2405; J2704; J3010; J3475; J3490; J7050; J7512; J7620

== ENCOUNTER 2022-11-11 22:11 | Emergency (ER) | payer OTHER ==
[~2022-11-11 22:11] MED LIST: Iopamidol-370 76% 500 ML 1 ML ONE
[2022-11-11] MEDS ORDERED: Cefepime 2 GM VIAL ONE (22:36)
[2022-11-11] MEDS ORDERED: Fentanyl 100 MCG/2 ML VIAL ONE (22:36)
[2022-11-11] MEDS ORDERED: Vancomycin 1 GM/200 ML (FROZEN) BAG ONE (22:36)
[2022-11-11 22:56] LABS: #Eosinphils 0.2 thou/uL (0.0-0.7); #Lymphocytes 1.5 thou/uL (1.20-3.40); #Monocytes 0.5 thou/uL (0.11-0.59); #Neutrophils 4.6 thou/uL (1.40-6.50); %Basophils 0.5 % (0.0-1.0); %Eosinophils 2.5 % (0.0-10.0); %Lymphocytes 22.4 % (21.0-51.0); %Monocytes 7.1 % (0.0-10.0); %Neutrophils 67.5 % (42.0-75.0); Hemoglobin 11.7 g/dL (12.0-16.0); Mean Corpuscular HGB CONC 32.9 g/dL (32.0-36.0); Mean Corpuscular Hemoglobin 29.8 pg (27.0-31.0); Mean Corpuscular Volume 90.6 fl (78.0-98.0); Mean Platelet Volume 7.2 fL (7.4-10.4); Platelet Count 169 10x3/uL (130-400); RBC Distribution Width 13.5 % (11.5-14.5); Red Blood Cell (RBC) Count 3.92 mill/uL (4.20-5.40); White Blood Cell (WBC) Count 6.9 10x3/uL (4.8-10.8)
[2022-11-11 23:18] LABS: ALT (SGPT) 13 U/L (8-55); AST (SGOT) 21 U/L (5-34); Albumin 4.1 g/dL (3.4-4.8); Alkaline Phosphatase 91 U/L (40-110); Anion Gap 16 mmol/L (10-20); BUN (Urea Nitrogen) 22 mg/dL (9.8-20.1); Bilirubin, Total 0.4 mg/dL (0.2-1.2); Calc. Creatinine Clearance 0 mL/min (70-130); Calcium 9.5 mg/dL (7.8-10.44); Carbon Dioxide 25 mmol/L (23-31); Chloride 100 mmol/L (98-107); Estimated GFR 38; Globulin 3.6 g/dL (2.4-3.5); Glucose 234 mg/dL (83-110); Lipase 51 U/L (8-78); Protein, Total 7.7 g/dL (5.8-8.1); Sodium 136 mmol/L (136-145)
[2022-11-12 00:33] LABS: Bacteria/HPF None Seen HPF (None Seen); Bilirubin Negative (Negative); Blood, Urine Negative (Negative); Clarity Clear (Clear); Glucose, Urine (Dipstick) Normal (Negative); Ketone, Urine Negative (Negative); Leukocyte 500 Leu/uL (Negative); Nitrite Negative (Negative); Protein, Urine (Dipstick) 50 mg/dL (Neg-Trace); RBC/HPF 0-3 HPF (0-3); Specific Gravity, Urine 1.033 (1.002-1.036); Urobilinogen Normal mg/dL (Less than 2)
== END 2022-11-12 01:07 | disposition home or self-care (01) ==
LOC: ERS 22:11
DX: N39.0 Urinary tract infection, site not specified (principal); R00.2 Palpitations; E11.9 Type 2 diabetes mellitus without complications; I10 Essential (primary) hypertension
CPT/HCPCS: 70481; 71045; 71275; 80053; 83605; 83690; 83880; 84484; 85025; 85379; 87040; 87086; 93005; 96365; 99285; J3370; 36415; 81003; 81015; J0692; J3010

== ENCOUNTER 2022-11-25 13:55 | Outpatient (CLI) | payer OTHER | END 2022-11-25 13:56 | disposition home or self-care (01) | LOC: ULT 13:55 | PROVIDERS: ATTEND Internal Medicine Nephrology | DX: N18.30 Chronic kidney disease, stage 3 unspecified (principal) | CPT/HCPCS: 76770 ==